=== PATIENT | male | born 1955 | race Caucasian/White ===

== ENCOUNTER 2018-12-24 14:34 | Inpatient (IN) | payer OTHER, MEDICARE ==
[~2018-12-24] VITALS: Ht 180.3 cm; Wt 42.0 kg
[2018-12-24] MEDS ORDERED: DICLOFONO2.5 GM TP (15:12)
[2018-12-24] MEDS ORDERED: Toviaz4 MG PO (15:14)
[2018-12-24] MEDS ORDERED: FINA5 PO (15:14)
[2018-12-24] MEDS ORDERED: GLIP5 PO (15:15)
[2018-12-24] MEDS ORDERED: LISI5 PO (15:16)
[2018-12-24] MEDS ORDERED: Metformin HCl500 MG PO (15:17)
[2018-12-24] MEDS ORDERED: TAMS.4ER PO (15:17)
[2018-12-24] MEDS ORDERED: Vitamin B Comple1 EA PO (15:18)
[2018-12-24 16:47] LABS: Mean Platelet Volume 10.1 fL (9.1-12.4); Platelet Count 214 K/mm3 (150-400)
[2018-12-24 17:03] LABS: International Normalized Ratio 0.94
--- NOTE | 2018-12-24 19:50 | NUR ---
ASSUMED CARE REPORT TAKEN FROM ED RN QASIM. PT TO ED W/ CP X3 DAYS, [facility] TRANSF[facility]. PT HAS BILAT BKA, AND USES PROSTHETICS TO AMBULATE. RESP IS EVEN UNLBAORED ON RA. LS CLEAR. HEPARIN GTT INFUSING IN PIV. SKIN IS PWD. PT REPORTS PAIN IS UNDER CONTROL AT THIS TIME. CONSULT FOR CARDIO PLACED FOR PT TO BE SEEN IN AM. PT IS VERY [place], HAS COCHLEAR IMPLANT. 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 CALL LIGHT IN REACH.
--- NOTE | 2018-12-25 03:00 | NUR ---
DIFFICULTY URINATING PT REPORTS HAVING TROUBLE FULLY EMPTYING BLADDER. STATES "IT'S HARD TO GO LYING DOWN". PT WAS ASSISTED IN PUTTING ON PROSTHETICS TO STAND AND USE RESTROOM. PT REPORTS BEING ABLE TO URINATE SOME WHILE STANDING BUT STILL FEELS THOUGH HE "DIDN'T GET IT ALL". PT REQUESTS MORE TIME TO TRY WITH URINAL IN BED BEFORE BLADDER SCAN.
[2018-12-25 05:56] LABS: Hematocrit 35.5 % (37.0-53.0); Hemoglobin 12.6 g/dL (13.5-17.5); Mean Corpuscular HGB 34.4 pg (26.0-34.0); Mean Corpuscular HGB Conc 35.5 g/dL (31.5-36.5); Mean Corpuscular Volume 97 fL (80-100); Mean Platelet Volume 10.3 fL (9.1-12.4); Platelet Count 206 K/mm3 (150-400); RDW Coefficient Variation 11.4 % (11.7-14.2); RDW Standard Deviation 40.6 fL (35.1-46.3); Red Blood Cell Count 3.66 M/mm3 (4.30-5.90); White Blood Cell Count 8.55 K/mm3 (4.00-11.30)
--- NOTE | 2018-12-25 06:12 | NUR ---
SHIFT SUMMARY PT SLEEPING IN ROOM COMFORTABLY. NO ACUTE CHANGES IN STATUS. PT DID HAVE EPISODE OF URINARY URGENCY EARLY IN THE MORNING. PT WAS ABLE TO STAND W/ PROSTHETICS AND USE RESTROOM. REPORTED WAS ABLE TO URINATE SOME, STILL FELT LIKE HE HAD TO GO. PT BACK TO BED, REPORTS WILL CONTINUE TO TRY USING URINAL. REPORTS FEELING BETTER. RESP EVEN UNLABORED ON RA. SKIN IS PWD. HEPARIN GTT INFUING, SEE EMAR. CALL LIGHT IS IN REACH.
[2018-12-25 06:28] LABS: Anion Gap 8 mmol/L (6-16); Blood Urea Nitrogen 22 mg/dL (8-24); Bun/Creatinine Ratio 14.3 (12.0-20.0); CHOL/HDL RATIO 2.7; CO2, Blood 17 mmol/L (21-32); Calcium, Blood 8.4 mg/dL (8.5-10.1); Chloride, Blood 112 mmol/L (98-108); Cholesterol 125 mg/dL (50-200); Creatinine, Blood 1.54 mg/dL (0.60-1.20); Glomerular Filtration Rate 49 (60-); Glucose, Blood 272 mg/dL (70-99); HDL Cholesterol 46 mg/dL (>39); LDL/HDL RATIO 1.2; Low Density Lipoprotein Chol 56 mg/dL (0-110); Potassium, Blood 4.7 mmol/L (3.5-5.5); Sodium, Blood 137 mmol/L (136-145); Triglycerides 113 mg/dL (30-160); Very Low Density Lipoprot Chol 22 mg/dL (6-32)
--- NOTE | 2018-12-25 12:47 | NUR ---
ASSUMED CARE OF THIS PATIENT AT 0700 FROM JALEN ALCANTAR. PT WAS RESTING COMFORTABLY EYES CLOSED ROUSED EASILY TO TOUCH. PT HAS A COCHLEAR IMPLANT THAT [facility] REMOVES AT [facility]. HE IS DEAF WITHOUT IMPLANT IN. PT REPLACES IMPLANT AND IS ABLE TO HEAR THIS RN WHO SPEAKS IN A SEMI LOUD TONE. ARRIVED TO SPEAK WITH PATIENT AND TO EVAL HIM FOR POSSIBLE ANGIO. CONSENT WAS SIGNED AND ALL QUESTIONS ADDRESSED BY PRIOR TO PATIENT BEING TAKEN TO DENTAL OFFICE MANAGER. ON ARRIVAL BACK TO PCU FROM DENTAL OFFICE MANAGER. REPORT FROM GIDEON ALCANTAR THAT PT IS TO BE TRANSFERRED TO [facility] FOR CABG PROCEDURE. HAS NOT ARRIVED TO DISCUSS WITH PATIENT. ORDER IS RECEIVED FOR PT TO START ON A CARDIAC DIET AND TO RESTART HEPARIN DRIP AFTER TR BAND REMOVED. WILL CONTINUE TO MONITOR THIS APTIEENT CLOSELY.
--- NOTE | 2018-12-25 18:24 | NUR ---
END OF SHIFT; PT WENT FOR ANGIO STUDY TODAY. NO INTERVENTIONS. PT IS TO BE TRANSFERRED TO [facility] FOR CABG PROCEDURE. CAME TO SEE PATIENT AFTER PROCEDUDRE AND EXPLAINED THE AMOUNT OF OCCLUSION TO THE VESSELS IN THE HEART. PT VERBALIZED UNDERSTANDING. DR. GUILLORY IS ACCEPTING PHYSICIAN IN [facility] HOWEVER NO BED AVAILABILITY OF YET. PT IS ON A CARDIAC DIET AND REMAINS ON BEDREST. HIS HEPARIN DRIP STARTED AGAIN AFTER TR BAND REMOVAL PER . PT HAS A VE[facility]ICLE AT THE [facility] AND WAS CONCERNED ABOUT LEAVING IT THERE. [employer] CONTACTED [facility] AND THEY WILL ALLOW PATIENT TO KEEP HIS CARE THERE AND IF HE CALLS THEM WHEN HE IS DISCHARGED THEY WILL MAKE ARRANGEMENTS FOR SOMEONE TO BRING HIM TO [place] TO GET HIS VEHICLE. NUMBER WAS PLACED IN THE PATIENTS CHART. PT HAS A COCHLEAR IMPLANT AND HE IS DEAF WITHOUT THE IMPLANT ATTACHED. PER PATIENT HE READS LIPS ALSO. HE HAS NS RUNNING AT 100ML AND HOUR AND HEPARIN AT 17 UNITS PER KG/HR PER PHARMACY. WILL CONTINUE TO MONITOR THIS PATIENT UNTIL REPORT AND HAND OFF TO NOC SHIFT RN.
[2018-12-26 04:28] LABS: Bun/Creatinine Ratio 17.9 (12.0-20.0); Calcium, Blood 8.1 mg/dL (8.5-10.1); Creatinine, Blood 1.84 mg/dL (0.60-1.20); Potassium, Blood 4.4 mmol/L (3.5-5.5)
--- NOTE | 2018-12-26 05:01 | NUR ---
SHIFT SUMMARY PT A&O X4, [place], WEARING COCHLEAR IMPLANT WHEN AWAKE. PT SLEEPING MAJORITY OF SHIFT. NO C/O CP. R RADIAL ACCESS SITE WNL, NO BLEEDING, NO HEMATOMA. BANDAID IN PLACE TO R RADIAL ACCESS SURGICAL SITE, ARM BOARD IN PLACE TO R ARM WELL. MONITOR SHOWS NSR, HR 80'S. LUNG SOUNDS CLEAR, SPO2 > 92% ON RA. NS INFUSING @ 100 MLS/HR. HEPARIN GTT INCREASED FROM 17 U/KG/HR TO 19 U/KG/HR BY PHARMACY THIS SHIFT. NO WORD FROM [place] W/ ROOM ASSIGNMENT FOR PT AT THIS POINT. WILL CONTINUE TO MONITOR AND PROVIDE CARE UNTIL REPORT OFF TO DAY SHIFT RN.
== END 2018-12-26 12:50 | disposition short-term general hospital (02) | DRG 281 ==
LOC: ER 14:34 → ERHOLD 15:54 → PCU 15:54
PROVIDERS: ADMIT Internal Medicine
PROC: B2111ZZ Fluoroscopy of Multiple Coronary Arteries using Low Osmolar Contrast (ICD-10-PCS; principal; 2018-12-25)
DX: I21.4 Non-ST elevation (NSTEMI) myocardial infarction (principal); N17.9 Acute kidney failure, unspecified; I25.10 Atherosclerotic heart disease of native coronary artery without angina pectoris; N18.3 Chronic kidney disease, stage 3 (moderate); E11.22 Type 2 diabetes mellitus with diabetic chronic kidney disease; I12.9 Hypertensive chronic kidney disease with stage 1 through stage 4 chronic kidney disease, or unspecified chronic kidney disease; K21.9 Gastro-esophageal reflux disease without esophagitis; D63.1 Anemia in chronic kidney disease; Z89.512 Acquired absence of left leg below knee; Z89.511 Acquired absence of right leg below knee; Z87.891 Personal history of nicotine dependence; Z79.84 Long term (current) use of oral hypoglycemic drugs; Z79.899 Other long term (current) drug therapy
CPT/HCPCS: 36415; 80048; 80061; 82947; 84484; 85027; 85049; 85610; 85730; 93005; 93010; 93306; 93454; 96365; 99152; 99153; 99285-25; C1769; C1894; J1644; J2250; J3010; J7030; Q9967